=== PATIENT | male | born 1955 | race Caucasian/White ===

== ENCOUNTER 2018-11-25 13:52 | Emergency (ER) | payer OTHER ==
[~2018-11-25] VITALS: Ht 170.2 cm; Wt 70.3 kg
[2018-11-25 13:53] VITALS: BP 112/65
[2018-11-25] MEDS ORDERED: IBUPROFEN 600 MG TABLET PO ONE (18:00)
== END 2018-11-25 17:55 ==
LOC: ER 13:54
DX: S02.2XXA Fracture of nasal bones, initial encounter for closed fracture (principal); S05.12XA Contusion of eyeball and orbital tissues, left eye, initial encounter; S05.11XA Contusion of eyeball and orbital tissues, right eye, initial encounter; Y04.0XXA Assault by unarmed brawl or fight, initial encounter; Y93.89 Activity, other specified; Y92.89 Other specified places as the place of occurrence of the external cause; Y99.8 Other external cause status
CPT/HCPCS: 70450-TC; 70486-TC; 72125-TC